=== PATIENT | male | born 2000 | race Two or more races ===

== ENCOUNTER 2024-12-24 22:35 | Emergency (ER) | payer MEDICAID, SELFPAY ==
[2024-12-24 22:37] VITALS: BMI 25.0
[2024-12-24 22:46] VITALS: BP 132/80; PULSE 105; RESP 18; TEMP 36.9; O2SAT 97
--- NOTE | 2024-12-24 23:54 | PD.EDWOUND ---
ED Wound/Laceration-RME/HPI General Chief Complaint: Wound/Laceration Stated Complaint: LAC L HAND Time Seen by Provider: 12/24/24 22:43 Arrival date/time: 12/24/24 22:35 This is a case of 34-year-old male with no medical history came in in the emergency room due to hand injury history of present illness started 1 hour prior to arrival in the emergency room patient is at the wedding accidentally fell on a broken glass hitting his hand sustaining a 4 cm laceration linear on the left palm patient tetanus shot is not up-to-date Limitations: no limitations Related Data Home Medications ?Medication ?Instructions ?Recorded ?Confirmed amoxicillin 500 mg capsule 1,000 mg PO BID 03/17/19 03/17/19 clarithromycin 250 mg tablet 2 tab PO BID 03/17/19 03/17/19 esomeprazole magnesium 40 mg 40 mg PO QDAY 03/17/19 03/17/19 capsule,delayed release prednisone 20 mg tablet 40 mg PO BID 03/17/19 03/17/19 Previous Rx's ?Medication ?Instructions ?Recorded cephalexin 500 mg capsule 500 mg PO Q8H #30 caps 12/24/24 ibuprofen 800 mg tablet 800 mg PO Q8H PRN pain #20 tabs 12/24/24 mupirocin 2 % topical ointment 1 applic topical TID #22 grams 12/24/24 (Centany) Allergies Allergy/AdvReac Type Severity Reaction Status Date / Time No Known Allergies Allergy Unknown Uncoded 12/24/24 22:39 Review of Systems Review of Systems Systems Reviewed: All systems reviewed, normal except as documented Constitutional Constitutional: Reports system reviewed and no additional complaints, except as documented and Reports as per HPI Cardiovascular Cardiovascular: Reports system reviewed and no additional complaints, except as documented and Reports as per HPI Respiratory Respiratory: Reports system reviewed and no additional complaints, except as documented and Reports as per HPI Gastrointestinal Gastrointestinal: Reports system reviewed and no additional complaints, except as documented and Reports as per HPI Musculoskeletal Musculoskeletal: Reports system reviewed and no additional complaints, except as documented and Reports as per HPI Neurologic Neurologic: Reports system reviewed and no additional complaints, except as documented and Reports as per HPI Past Medical History Past Medical History CARDIAC: Negative Congestive Heart Failure RESPIRATORY: Negative Chronic Obstructive Pulmonary Disease (COPD) GASTROINTESTINAL: Positive Ulcerative Colitis GENITOURINARY: Negative Renal Disease ENDOCRINE: Negative Diabetes Mellitus Type 1 or Diabetes Mellitus Type 2 Social History SMOKING STATUS: Never smoker ED Exam General Limitations: Present no limitations General appearance: Present alert, in no apparent distress and other (Patient is awake alert oriented not in distress nontoxic looking well-hydrated well-nourished) Head Head exam: Present atraumatic, normocephalic and normal inspection Eye Eye exam: Present normal appearance, PERRL and EOMI ENT ENT exam: Present normal exam, normal oropharynx and mucous membranes moist Neck Neck exam: Present normal inspection, full ROM and trachea midline; Absent tenderness, meningismus, lymphadenopathy or thyromegaly Chest Chest inspection: Present normal inspection and symmetric chest wall rise; Absent tenderness Respiratory Respiratory exam: Present normal lung sounds bilaterally; Absent respiratory distress, wheezes, stridor, accessory muscle use or prolonged expiratory phase Cardiovascular Cardiovascular exam: Present regular rate, normal rhythm and normal heart sounds; Absent bradycardia, tachycardia, irregular rhythm, systolic murmur or diastolic murmur Abdominal Exam Abdominal exam: Present soft and normal bowel sounds; Absent distention, tenderness, guarding, rebound, rigidity or diminished bowel sounds Extremities Exam Extremities exam: Present normal inspection and full ROM Expanded Upper Extremity Exam Hand exam: Present full ROM, laceration (Patient noted to have 4 cm linear laceration involving skin and subcutaneous no muscle no tendon no bone injury no foreign body no abscess no cellulitis) and other (ROM intact motor or sensory pulses were full and equal capillary refill less than 2 seconds minimal bleeding); Absent tenderness, swelling, abrasion, skin avulsion, ecchymosis, deformity, crepitus, dislocation, erythema, amputation, nail avulsion or subungual hematoma Back Exam Back exam: Present normal inspection and full ROM Neurological Exam Neurological exam: Present alert, oriented X3, CN II-XII intact, normal gait and reflexes normal; Absent motor sensory deficit Psychiatric Psychiatric exam: Present normal affect and normal mood Skin Skin exam: Present warm, dry, intact, normal color and other (Left hand laceration) Course Quality Measures none Orders Category Date Time Status Bacitracin Oint pkt Med 12/24/24 23:29 Discontinued 1 gm TOP X1 ONE Ibuprofen Tab [Motrin Tab] Med 12/24/24 23:29 Discontinued 800 mg PO X1 ONE TET,DIP/PERT AC (Adult)-Tdap [Boostrix Adult (Tdap) Med 12/24/24 23:29 Discontinued Vacc] 0.5 ml IMI .ONCE ONE cephALEXin [Keflex] Med 12/24/24 23:29 Discontinued 500 mg PO X1 ONE Vital Signs Vital signs: Vital Signs Temperature 98.4 F 12/24/24 22:46 Pulse Rate 105 H 12/24/24 22:46 Respiratory Rate 18 12/24/24 22:46 Blood Pressure 132/80 H 12/24/24 22:46 Pulse Oximetry (%) 97 12/24/24 22:46 Oxygen Delivery Method Room Air 12/24/24 22:46 Oxygen saturation is 97% on room air PROCEDURES: Laceration Laceration 1: Site: other (Left palm) Side (If applicable): left Size (cm): 4 Description: linear Depth: simple, single layer Local Anesthetic: lidocaine 1% Amount of anesthesia used (mL): 6 Pre-repair: wound explored Skin layer closed with: nylon Suture size (cm): 4-0 Number of sutures: 13 Technique: simple, interrupted Wound / Laceration MDM Narrative MDM Narrative:: This is a case of 34-year-old male with no medical history came in in the emergency room due to hand injury history of present illness started 1 hour prior to arrival in the emergency room patient is at the wedding accidentally fell on a broken glass hitting his hand sustaining a 4 cm laceration linear on the left palm patient tetanus shot is not up-to-date physical examination patient is awake alert oriented not in distress nontoxic looking well-hydrated well-nourished noted a 4 cm linear laceration left palm involving skin and subcutaneous only no muscle no bone no tendon injury no foreign body no abscess no cellulitis no crepitation no deformity ROM intact neurovascular intact laceration repair was performed patient tolerated well the procedure procedure done by [place] protocol and via sterile technique patient will follow-up with PCP in 2 days for reevaluation and wound check and removal of suture in 10 days Tdap was given here in the emergency room and started on cephalexin and mupirocin ointment to prevent infection patient was also prescribed with medication ibuprofen for pain for any worsening symptoms or any signs and symptoms of infection return precaution in the ER was advised Patient was discharged with comfortable condition walking with stable gait. Patient verbalized no further complains explained diagnosis and answered patient question. Patient is comfortable with the proposed management plan including the need to follow up with his/her primary care physician and any specialist if applicable Discussed patient for any urgent condition or worsening sx, He/She needed to go to emergency room immediately or call 911. Patient acknowledge the responsibility to follow up as instructed and to monitor her/his symptoms. For any persistence of the symptoms for more than 3-5 days return precaution advised. Discussed the result of the test and was given printed discharge instruction Patient data External records reviewed:: [facility] previous records Clinical information provided by:: patient Social determinants that could affect healthcare access:: none Patient has the following chronic illnesses:: None How is presenting disease/condition affected by chronic disease/condition?: no chronic disease Evaluation data The following diagnostics were reviewed and interpreted by me:: other (specify) (None) Lab and/or radiology exams considered but not ordered:: None Interpretation Summary: None Medications / Prescriptions Medications or Prescriptions considered but not ordered:: Given Medication administrations:: Medication Administration History Discontinued Medications Bacitracin (Bacitracin Oint 1 Gm Packet) 1 gm TOP X1 ONE Stop: 12/24/24 23:30 Cephalexin HCl (Cephalexin 250 Mg Capsule) 500 mg PO X1 ONE Stop: 12/24/24 23:30 Diphtheria/Tetanus/Acell Pertussis (Diphth,Pertuss(Acell),Tet Vac 0.5 Ml Syr- Adult) 0.5 ml IMi .ONCE ONE Stop: 12/24/24 23:30 Ibuprofen (Ibuprofen Tab 400 Mg Tablet) 800 mg PO X1 ONE Stop: 12/24/24 23:30 Given Consultations Consultation(s) initiated? (list below): No Diagnosis Wound Differential Diagnosis: laceration Most likely diagnosis given after review of the tests above:: Hand laceration Admission Indicated Admission indicated?: not indicated Explain why admission is indicated or not indicated:: Not indicated Admission Request Was there a request for admission?: No Disposition Plan Disposition Plan: Discharge Discharge Attestation Discharge Attestation: The patient and all family members were given an opportunity to ask questions and understood the discharge instructions. Discharge instructions specifically effects, indications for sooner follow up or return to the emergency department, and the expected course of current diagnosis. Patient condition: Stable Discharge Plan Plan Patient Disposition: HOME (Self Care) Patient condition on transfer: Stable Prescriptions/Referrals Prescriptions/Med Rec: New cephalexin 500 mg capsule 500 mg PO Q8H Qty: 30 0RF ibuprofen 800 mg tablet 800 mg PO Q8H PRN (Reason: pain) Qty: 20 0RF mupirocin [Centany] 2 % ointment 1 applic topical TID Qty: 22 0RF No Action amoxicillin 500 mg capsule 1,000 mg PO BID Patient Comments: TK 2 CS PO BID FOR 6 DAYS clarithromycin 250 mg tablet 2 tab PO BID Patient Comments: TK 2 TS PO BID FOR 5 DAYS prednisone 20 mg tablet 40 mg PO BID Patient Comments: TAKE 1 TABLET BY MOUTH TWICE DAILY esomeprazole magnesium 40 mg capsule,delayed release(DR/EC) 40 mg PO QDAY Patient Comments: TK 1 C PO D Problem List Clinical Impression: Hand laceration Patient/Caregiver Discharge Instructions Education Materials: Suture Care, ED Laceration: All Closures Additional Instructions: Follow-up with your primary care physician in 2 days for reevaluation and wound check and for removal of suture in 10 days for any worsening symptoms or any emergent concern such as redness swelling discharge from the wound pain fever chills return to the emergency room immediately or call 911 take the medication as directed finish the course of antibiotic keep the wound clean and dry Print Language: Finnish Stand Alone Forms: [facility] Award Info., Patient Portal Info Letter PA/CHILD CARE CENTRE MANAGER Supervising Physician PA/CHILD CARE CENTRE MANAGER Supervising Physician: Dr. Peggy Carrasquillo
[2024-12-25] MEDS: BACITRACIN OINT 1 GM PACKET TOP (00:09)
[2024-12-25] MEDS: DIPHTH,PERTUSS(ACELL),TET VAC 0.5 ML SYR- ADULT IMi (00:09)
[2024-12-25] MEDS: IBUPROFEN TAB 400 MG TABLET 800 MG PO (00:09)
== END 2024-12-25 00:14 | disposition home or self-care (01) ==
LOC: SERX 23:57
PROVIDERS: Emergency Provider Emergency Medicine; PCP Family Medicine
DX: S61.412A Laceration without foreign body of left hand, initial encounter (principal); W19.XXXA Unspecified fall, initial encounter
CPT/HCPCS: 12002; 90471; 90715; 99282; A9270